=== PATIENT | female | born 1990 | race African-American/Black ===

== ENCOUNTER 2020-07-02 | Emergency (ER) | payer OTHER ==
[~2020-07-02] VITALS: Ht 172.7 cm; Wt 90.7 kg
[2020-07-02 06:05] VITALS: BP 133/88
== END 2020-07-02 06:06 | disposition home or self-care (01) ==
LOC: ER
DX: S39.82XA Other specified injuries of lower back, initial encounter (principal); T74.21XA Adult sexual abuse, confirmed, initial encounter; Y93.89 Activity, other specified; Y92.89 Other specified places as the place of occurrence of the external cause; Y99.8 Other external cause status